=== PATIENT | male | born 1970 | race Caucasian/White ===

== ENCOUNTER 2018-03-31 13:20 | Emergency (ER) | payer OTHER ==
[~2018-03-31] VITALS: Ht 180.3 cm; Wt 80.5 kg
[2018-03-31 13:25] VITALS: BP 147/91
[2018-03-31] MEDS ORDERED: NACL 0.9% 1,000 ML IV SCH (13:42)
[2018-03-31] MEDS ORDERED: KETOROLAC 30 MG/ML VIAL IVP ONE (13:45)
[2018-03-31] MEDS ORDERED: ONDANSETRON 4 MG/2 ML VIAL IVP ONE (13:45)
[2018-03-31] MEDS ORDERED: MORPHINE SULFATE 4 MG/ML SYR IVP ONE (13:45)
[2018-03-31 14:02] LABS: BASOPHILS % (AUTO) 0.3 % (0.0-2.0); EOSINOPHILS # (AUTO) 0.3 K/uL (0-0.4); HEMATOCRIT 49.4 % (36-52); HEMOGLOBIN 16.4 g/dL (12.0-18.0); LYMPHOCYTES # (AUTO) 1.1 K/uL (2.0-11.5); LYMPHOCYTES % (AUTO) 20.5 % (20.5-51.1); MEAN CORPUSCULAR HEMOGLOBIN 30 pg (27-31); MEAN CORPUSCULAR HGB CONC 33 g/dL (33-37); MEAN CORPUSCULAR VOLUME 90.7 fL (80-94); MONOCYTES # (AUTO) 0.7 K/uL (0.8-1.0); MONOCYTES % (AUTO) 12.1 % (1.7-9.3); NEUTROPHILS # (AUTO) 3.3 K/uL (1.8-7.7); NEUTROPHILS % (AUTO) 61.1 % (42.2-75.2); PLATELET COUNT (AUTO) 192 K/uL (140-450); RED BLOOD CELL COUNT(AUTO) 5.44 MIL/uL (4.20-6.10); RED CELL DISTRIBUTION WIDTH 12.8 % (11.6-13.7); WHITE BLOOD COUNT (AUTO) 5.4 K/uL (4.8-10.8)
[2018-03-31 14:22] LABS: ALBUMIN 4.3 g/dL (3.4-5.0); ANION GAP 13.9 (8-16); CARBON DIOXIDE 25.1 mmol/L (21-32); CREATININE 0.9 mg/dL (0.7-1.3); TOTAL BILIRUBIN 0.4 mg/dL (0.0-1.0)
[2018-03-31] MEDS ORDERED: diphenhydrAMINE 50 MG/ML VIAL IVP ONE ×2 (14:30)
[2018-03-31 15:54] VITALS: BP 124/70
== END 2018-03-31 15:54 | disposition home or self-care (01) ==
LOC: MED 13:20
DX: R11.2 Nausea with vomiting, unspecified (principal); R19.7 Diarrhea, unspecified; R10.84 Generalized abdominal pain; J44.9 Chronic obstructive pulmonary disease, unspecified; I10 Essential (primary) hypertension
CPT/HCPCS: 36415; 71045; 74176; 80053; 82150; 83690; 85025; 96361; 96374; 96375; 99284; J1200; J1885; J2270; J2405; J7030; Q0092

== ENCOUNTER 2018-11-05 14:29 | Emergency (ER) | payer OTHER ==
[~2018-11-05] VITALS: Ht 175.3 cm; Wt 79.4 kg
[2018-11-05 15:00] VITALS: BP 147/89
[2018-11-05] MEDS ORDERED: PRON INH (15:06)
--- NOTE | 2018-11-05 16:42 | NUR ---
PT AMBULATED TO ER BED 1
[2018-11-05] MEDS ORDERED: TETRACAINE HCL/PF 0.5% OPTH 4 ML BTL OP ONE (17:05)
[2018-11-05] MEDS ORDERED: FLUORESCEIN OPTH STRIP 0.6 MG OP ONE (17:05)
--- NOTE | 2018-11-05 17:10 | NUR ---
Pt presents to the ED with constant bilateral eye pain/burning and cough for a week. Pt reports pain has been progressively worsening; redness and watery eyes noted. Denies any injury or trauma.
--- NOTE | 2018-11-05 17:20 | NUR ---
ALL THE MEDS ORDERED PLACED AT THE BEDSIDE . DR. MCLAUGHLIN TO PERFORM BEDSIDE PROCEDURE.
--- NOTE | 2018-11-05 17:29 | NUR ---
Dr boswell at bedside evaluating pt.
[2018-11-05] MEDS ORDERED: ERYTHROMYCIN 0.5% OPTH OINT 1 GM TUBE OP ONE (17:40)
[2018-11-05 18:00] VITALS: BP 135/78
--- NOTE | 2018-11-05 18:00 | NUR ---
Patient discharged with v/s stable. Written and verbal after care instructions given and explained. Patient alert, oriented and verbalized understanding of instructions. Ambulatory with steady gait. All questions addressed prior to discharge. ID band removed. Patient advised to follow up with PMD. Rx of erythromycin 0.5% opthalmic Ointment, norco 5-325 mg tab given. Patient educated on indication of medication including possible reaction and side effects. Opportunity to ask questions provided and answered.
== END 2018-11-05 18:00 | disposition home or self-care (01) ==
LOC: MED 14:29
DX: H57.11 Ocular pain, right eye (principal); J44.9 Chronic obstructive pulmonary disease, unspecified; I10 Essential (primary) hypertension; Z79.899 Other long term (current) drug therapy
CPT/HCPCS: 99283

== ENCOUNTER 2018-12-09 11:11 | Emergency (ER) | payer OTHER ==
[~2018-12-09] VITALS: Ht 175.3 cm; Wt 79.8 kg
[~2018-12-09 11:11] MED LIST: PRON INH
[2018-12-09 11:20] VITALS: BP 126/79
--- NOTE | 2018-12-09 11:24 | NUR ---
Patient ambulated to bed 6. RN evaluating patient at bedside.
--- NOTE | 2018-12-09 11:40 | NUR ---
C/O COUGH, N/V, & DIZZINESS X 3 DAYS. PT REPORTS TAKING DAYQUIL, BENADRYL AND IBUPROFEN WITH NO RELIEF. O2 SAT ON RA 94%, HR 125, BREATHING IS LABORED BUT EVEN, RR NORMAL AT 19. PT HAS AUDIBLE MOIST COUGH. DENIES FEVER. PT STATES HE FEELS DIZZY AFTER COUGHING. PT STATES HE HAS HAD "RED" PHLEGM WHILE COUGHING. HE ALSO NOTED A HX OF COPD & ASTHMA. LUNG SOUNDS ARE CLEAR IN BUL, DIMINISHED IN BLL. PT PLACED ON BEDSIDE MONITOR AT THIS TIME.
[2018-12-09] MEDS ORDERED: ALBUTEROL SULFATE/IPRATROPIU 3 ML SOL IH ONE ×2 (11:55→13:20)
--- NOTE | 2018-12-09 12:05 | NUR ---
RT AT BEDSIDE
[2018-12-09 12:27] LABS: BASOPHILS % (AUTO) 0.2 % (0.0-2.0); EOSINOPHILS # (AUTO) 0.9 K/uL (0-0.4); EOSINOPHILS % (AUTO) 10.2 % (0.0-4.0); HEMATOCRIT 47.7 % (36-52); HEMOGLOBIN 16.1 g/dL (12.0-18.0); LYMPHOCYTES # (AUTO) 0.9 K/uL (2.0-11.5); LYMPHOCYTES % (AUTO) 11.2 % (20.5-51.1); MEAN CORPUSCULAR HEMOGLOBIN 31 pg (27-31); MEAN CORPUSCULAR HGB CONC 34 g/dL (33-37); MEAN CORPUSCULAR VOLUME 92.3 fL (80-94); MONOCYTES # (AUTO) 0.8 K/uL (0.8-1.0); NEUTROPHILS # (AUTO) 5.7 K/uL (1.8-7.7); NEUTROPHILS % (AUTO) 68.4 % (42.2-75.2); PLATELET COUNT (AUTO) 201 K/uL (140-450); RED BLOOD CELL COUNT(AUTO) 5.16 MIL/uL (4.20-6.10); RED CELL DISTRIBUTION WIDTH 13.6 % (11.6-13.7); WHITE BLOOD COUNT (AUTO) 8.4 K/uL (4.8-10.8)
[2018-12-09 12:31] LABS: ANION GAP 13.9 (8-16); CARBON DIOXIDE 25.3 mmol/L (21-32); CREATININE 0.9 mg/dL (0.7-1.3); POTASSIUM 4.2 mmol/L (3.5-5.1)
[2018-12-09 12:35] LABS: PROTHROMBIN TIME 9.1 secs (10.8-13.4)
[2018-12-09 12:36] LABS: TOTAL BILIRUBIN 0.5 mg/dL (0.0-1.0)
[2018-12-09] MEDS ORDERED: NACL 0.9% 1,000 ML IV ONE ×2 (13:20→13:40)
[2018-12-09] MEDS ORDERED: KETOROLAC 30 MG/ML VIAL IVP ONE (13:20)
--- NOTE | 2018-12-09 13:34 | NUR ---
IVP/IVF GIVEN-NADR AT THIS TIME. RT AT BEDSIDE-2ND HHN TX GIVEN.
[2018-12-09] MEDS ORDERED: AZITHROMYCIN 250 MG TAB PO ONE (13:35)
[2018-12-09] MEDS ORDERED: predniSONE 20 MG TAB PO ONE (13:35)
--- NOTE | 2018-12-09 15:24 | NUR ---
PT RESTING IN BED, NO NEW NEEDS AT THIS TIME
[2018-12-09 16:26] VITALS: BP 125/74
--- NOTE | 2018-12-09 16:27 | NUR ---
Patient discharged with v/s stable. Written and verbal after care instructions given and explained. Patient alert, oriented and verbalized understanding of instructions. Ambulatory with to car. All questions addressed prior to discharge. ID band removed. Patient advised to follow up with PMD. Rx of PREDNISONE & AZITHROMYCIN given. Patient educated on indication of medication including possible reaction and side effects. Opportunity to ask questions provided and answered.
== END 2018-12-09 16:27 | disposition home or self-care (01) ==
LOC: MED 11:11
DX: J44.1 Chronic obstructive pulmonary disease with (acute) exacerbation (principal); R42 Dizziness and giddiness; I10 Essential (primary) hypertension; Z79.899 Other long term (current) drug therapy; Z86.73 Personal history of transient ischemic attack (TIA), and cerebral infarction without residual deficits
CPT/HCPCS: 36415; 71045; 80053; 83880; 84484; 85025; 85610; 85730; 93005; 94640; 96361; 96374; 99284; J1885; J7030; J7512; J7620; Q0092

== ENCOUNTER 2019-03-08 11:48 | Emergency (ER) | payer OTHER ==
[~2019-03-08] VITALS: Ht 175.3 cm; Wt 79.4 kg
[2019-03-08 11:51] VITALS: BP 155/103
--- NOTE | 2019-03-08 12:01 | NUR ---
PATIENT WHEELCHAIR ASSISTED TO BED 7.
--- NOTE | 2019-03-08 12:02 | NUR ---
DR. HOWELL AT BEDSIDE EVALUATING PT
--- NOTE | 2019-03-08 12:38 | NUR ---
C/O L SIDED WEAKNESS/NUMBNESS X2 WEEKS, THAT WAS SUDDENLY EXACERBATED THIS MORNING AROUND 5AM. PT ALSO C/O NEW ONSET DOUBLE VISION OF YESTERDAY. PT REPORTS HX OF STROKE IN 2009. PT IS ALERT AND ANSWERING QUESTIONS APPROPRIATELY. 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 PERRLA 3MM. NO SLURRED SPEECH NOTED. PT DENIES ANY RECENT ILLNESS OTHER THAN A "BAD COUGH". DENIES N/V. PT PLACED IN GOWN AND ON BEDSIDE CARD CUTTER HELPER AT THIS TIME.
--- NOTE | 2019-03-08 12:48 | NUR ---
LAB AT BEDSIDE
[2019-03-08 13:03] LABS: EOSINOPHILS # (AUTO) 0.9 K/uL (0-0.4); LYMPHOCYTES # (AUTO) 0.9 K/uL (2.0-11.5); MEAN CORPUSCULAR HEMOGLOBIN 31 pg (27-31); MONOCYTES # (AUTO) 0.7 K/uL (0.8-1.0); NEUTROPHILS # (AUTO) 5.4 K/uL (1.8-7.7); WHITE BLOOD COUNT (AUTO) 7.9 K/uL (4.8-10.8)
[2019-03-08 13:07] LABS: BASOPHILS % (AUTO) 0.3 % (0.0-2.0); CARBON DIOXIDE 25.3 mmol/L (21-32); HEMATOCRIT 51.5 % (36-52); HEMOGLOBIN 17.2 g/dL (12.0-18.0); LYMPHOCYTES % (AUTO) 11.7 % (20.5-51.1); MEAN CORPUSCULAR HGB CONC 34 g/dL (33-37); MEAN CORPUSCULAR VOLUME 92.9 fL (80-94); PLATELET COUNT (AUTO) 238 K/uL (140-450); POTASSIUM 4.3 mmol/L (3.5-5.1); RED BLOOD CELL COUNT(AUTO) 5.54 MIL/uL (4.20-6.10); RED CELL DISTRIBUTION WIDTH 13.1 % (11.6-13.7)
[2019-03-08 13:12] LABS: PROTHROMBIN TIME 9.3 secs (10.8-13.4)
[2019-03-08 13:14] LABS: ALBUMIN 4.4 g/dL (3.4-5.0); TOTAL BILIRUBIN 0.4 mg/dL (0.0-1.0)
--- NOTE | 2019-03-08 13:24 | NUR ---
PT TAKEN TO CT VIA RMATT.
--- NOTE | 2019-03-08 13:38 | NUR ---
PT RETURNED FROM CT AND PLACED IN BED 7.
--- NOTE | 2019-03-08 13:39 | NUR ---
BUNKER WORKER LILIANA REPORT PT C/O SOB RETURNING FROM CT SCAN. DR. HOWELL MADE AWARE. DOCTOR WILL INPUT ORDER FOR BENADRYL. PT OXYGEN SATURATION 97% ON ROOM AIR, NO SIGNS OF RESPIRATORY DISTRESS. RESPIRATIONS EVEN AND UNLABORED.
[2019-03-08] MEDS ORDERED: methylPREDNISolone SS 125 MG/2 ML VIAL IVP ONE (13:40)
[2019-03-08] MEDS ORDERED: diphenhydrAMINE 50 MG/ML VIAL IVP ONE (13:40)
--- NOTE | 2019-03-08 15:00 | NUR ---
PATIENT RESTING IN BED, ALERT AND ORIENTED, BREATHING EVEN AND NONLABORED.
[2019-03-08 16:46] LABS: APPEARANCE,URINE CLEAR (CLEAR); BILIRUBIN,URINE NEGATIVE (NEGATIVE); BLOOD, URINE TRACE-L (NEGATIVE); COLOR,URINE YELLOW (YELLOW); LEUKOCYTE ESTERASE ,URINE NEGATIVE (NEGATIVE); NITRITE, URINE NEGATIVE (NEGATIVE); PH,URINE 5.5 (5.0-9.0); UGLUCOSE NEGATIVE (NEGATIVE)
[2019-03-08] MEDS ORDERED: ASPIRIN 325 MG TAB PO ONE (16:55)
[2019-03-08 17:05] LABS: RBC,URINE 0-5 /HPF (0-5); WBC,URINE NONE SEEN /HPF (0-5)
--- NOTE | 2019-03-08 17:10 | NUR ---
PATIENT GIVEN UPDATE THAT WE ARE STILL WAITING FOR TRANSFER
--- NOTE | 2019-03-08 17:32 | NUR ---
PATIENT ALERT AND ORIENTED, BREATHING EVEN AND UNLABORED, PATIENT IS LOOKING AT CELL PHONE VIDEOS
--- NOTE | 2019-03-08 17:45 | NUR ---
Patient to be transferred to [facility] ER. Is being transferred due to DX OF SUBACUTE STROKE. Receiving facility has accepting physician and available space. ER physician has signed transfer form. Patient or responsible libertarian has agreed to transfer and signed form. Patient belongings inventoried and will be sent with patient. Copy of nursing notes, lab reports, EKG, Physicians Orders and X-rays to be sent with patient. Report called to at receiving facility TO [facility] RN. [facility] ambulance service has been called for transfer. ETA is [phone]
--- NOTE | 2019-03-08 18:24 | NUR ---
PATIENT ALERT AND ORIENTED, BREATHING EVEN AND UNLABORED, LOOKING AT PHONE
[2019-03-08 19:09] VITALS: BP 123/76
--- NOTE | 2019-03-08 19:10 | NUR ---
PATIENT IS BEING PICKED UP BY [facility] AT THIS TIME, ALERT AND ORIENTED, BREATHING EVEN AND UNLABORED
== END 2019-03-08 19:09 | disposition short-term general hospital (02) ==
LOC: MED 11:48
DX: I63.9 Cerebral infarction, unspecified (principal); J45.909 Unspecified asthma, uncomplicated; I10 Essential (primary) hypertension; Z79.899 Other long term (current) drug therapy
CPT/HCPCS: 36415; 70450; 70496; 70498; 71045; 80053; 81001; 84484; 85025; 85610; 85730; 86886; 86900; 86901; 93005; 96374; 96375; 99291; J1200; J2930; Q0092; Q9967

== ENCOUNTER 2019-11-21 11:14 | Emergency (ER) | payer OTHER ==
[~2019-11-21] VITALS: Ht 175.3 cm; Wt 83.0 kg
[2019-11-21 11:20] VITALS: BP 129/75
--- NOTE | 2019-11-21 11:40 | NUR ---
49/M C/O LEFT SIDED NUMBNESS/WEAKNESS/LOSS OF SENSATION X 2 DAYS. SYMPTOMS STARTED AT APPROX 1PM YESTERDAY. STATES HX OF CVA FEB 2019 WITH LEFT SIDED WEAKNESS THAT WAS IMPROVING. YESTERDAY AT 1PM STARTED FEELING MORE LEFT SIDED WEAKNESS THAN NORMAL. FELL 2X YESTERDAY. STATES CAN'T REMEMBER EVENTS FROM YESTERDAY WELL. STATES MILD DIZZINESS AND OCCASIONAL BLURRY VISION. LEFT LOWER LEG BRACE IN PLACE SINCE PREVIOUS STROKE. 2/5 LEFT HAND, 5/5 RIGHT HAND. 3MM PERRL. PT SEEN USING LEFT HAND/FINGERS ON PERSONAL CELLPHONE TOUCH SCREEN WITHOUT DIFFICULTY. PT IS NOT C/O COUGH AT THIS TIME. MED HX: STROKE FEB 2019, HTN, HLD, ASTHMA
--- NOTE | 2019-11-21 11:45 | NUR ---
DR. REED EVALUATING PT AT BEDSIDE
--- NOTE | 2019-11-21 11:48 | NUR ---
PATIENT TAKEN FOR CT SCAN FOR CODE BRAIN VIA [facility]AND[facility] ACCOMPANIED BY [employer], AND [facility] [place] [facility] ([facility]: [place]).
--- NOTE | 2019-11-21 11:58 | NUR ---
BACK TO CT SCAN VIA MANDY
--- NOTE | 2019-11-21 12:06 | NUR ---
PT WATCHING VIDEO ON CELLPHONE, NAD. SEEN MOVING LEFT ARM/HAND/FINGERS WITHOUT DIFFICULTY.
--- NOTE | 2019-11-21 12:42 | NUR ---
MANAGER OF APPLICATIONS DEVELOPMENT AT BEDSIDE FOR BLOOD DRAW
--- NOTE | 2019-11-21 12:52 | NUR ---
EMT AT BEDSIDE FOR EKG
[2019-11-21 12:55] LABS: BASOPHILS % (AUTO) 0.3 % (0.0-2.0); EOSINOPHILS % (AUTO) 17.2 % (0.0-4.0); HEMATOCRIT 45.3 % (36-52); HEMOGLOBIN 15.1 g/dL (12.0-18.0); LYMPHOCYTES # (AUTO) 1.3 K/uL (2.0-11.5); MEAN CORPUSCULAR HEMOGLOBIN 31 pg (27-31); MEAN CORPUSCULAR HGB CONC 33 g/dL (33-37); MEAN CORPUSCULAR VOLUME 92.3 fL (80-94); MONOCYTES # (AUTO) 0.6 K/uL (0.8-1.0); MONOCYTES % (AUTO) 9.7 % (1.7-9.3); NEUTROPHILS # (AUTO) 3.1 K/uL (1.8-7.7); NEUTROPHILS % (AUTO) 50.8 % (42.2-75.2); PLATELET COUNT (AUTO) 236 K/uL (140-450); RED BLOOD CELL COUNT(AUTO) 4.91 MIL/uL (4.20-6.10)
--- NOTE | 2019-11-21 12:55 | NUR ---
URINAL AT BEDSIDE. PT AWARE OF NEED FOR URINE SAMPLE.
[2019-11-21 13:11] LABS: ALBUMIN 4.2 g/dL (3.4-5.0); ANION GAP 14.3 (8-16); ASPARTATE AMINOTRANSFERASE 14 U/L (15-37); CARBON DIOXIDE 26.4 mmol/L (21-32); CHLORIDE 103 mmol/L (98-107); CREATININE 1.1 mg/dL (0.6-1.3); GFR ARICAN-AMERICAN 92 mL/min (>90); GLUCOSE 102 mg/dL (74-106); LIPASE 74 U/L (73-393); POTASSIUM 3.7 mmol/L (3.5-5.1); SODIUM SERUM 140 mmol/L (136-145); TOTAL BILIRUBIN 0.6 mg/dL (0.0-1.0); UREA NITROGEN, BLOOD 18 mg/dL (7-18)
[2019-11-21 13:18] LABS: ACETAMINOPHEN < 0.5 ug/ml (10-30); SALICYLATE < 2.8 mg/dL (2.8-20.0)
--- NOTE | 2019-11-21 13:53 | NUR ---
PT CONTINUES TO STATE UNABLE TO PROVIDE URINE SAMPLE, MORE WATER PROVIDED, PT TO ATTEMPT TO VOID IN FEW MINUTES.
--- NOTE | 2019-11-21 14:52 | NUR ---
URINE SAMPLE HANDED TO PHLEB
--- NOTE | 2019-11-21 15:18 | NUR ---
Patient discharged with v/s stable. Written and verbal after care instructions given and explained. Patient verbalized understanding. Ambulatory with steady gait. All questions addressed prior to discharge. Advised to follow up with PMD.
[2019-11-21 15:19] VITALS: BP 102/60
[2019-11-21 15:20] LABS: BARBITURATE, URINE NEGATIVE ng/ml (NEG <=200); BENZODIAZEPINE, URINE NEGATIVE ng/mL (NEG <=200); CANNABINOID, URINE NEGATIVE ng/mL (NEG <=50); COCAINE, URINE NEGATIVE ng/mL (NEG <=300); OPIATE, URINE NEGATIVE ng/mL (NEG <=2000); PHENCYCLIDINE SCREEN,URINE NEGATIVE ng/mL (NEG <=25)
== END 2019-11-21 15:18 | disposition home or self-care (01) ==
LOC: MED 11:14
DX: R20.2 Paresthesia of skin (principal); R53.1 Weakness; R11.10 Vomiting, unspecified; R63.0 Anorexia; J44.9 Chronic obstructive pulmonary disease, unspecified; I10 Essential (primary) hypertension; Z86.73 Personal history of transient ischemic attack (TIA), and cerebral infarction without residual deficits; Z79.899 Other long term (current) drug therapy
CPT/HCPCS: 36415; 70450; 80053; 80305; 83690; 85025; 93005; 99285; C1758; G0480; G0482